=== PATIENT | female | born 1995 | race Caucasian/White ===

== ENCOUNTER 2018-03-07 06:23 | Inpatient (IN) | payer OTHER ==
[2018-03-07 07:18] LABS: Hemoglobin 10.5 g/dL (12.0-16.0); Mean Corpuscular HGB CONC 31.9 g/dL (32.0-36.0); Mean Corpuscular Hemoglobin 20.7 pg (27.0-31.0); Mean Corpuscular Volume 64.8 fL (78.0-98.0); Mean Platelet Volume 9.8 fL (7.4-10.4); Platelet Count 362 thou/uL (130-400); RBC Distribution Width 17.6 % (11.5-14.5); Red Blood Cell (RBC) Count 5.08 mill/uL (4.20-5.40); White Blood Cell (WBC) Count 12.1 thou/uL (4.8-10.8)
[2018-03-07] MEDS ORDERED: Fentanyl 4 mcg/Bup 0.1% Cadd 100 ML ONE (07:41)
[2018-03-07 07:50] VITALS: BMI 26.7
[2018-03-07] MEDS ORDERED: Ondansetron PF 4 MG/2 ML Vial IVP PRN ×2 (08:10→12:57)
[2018-03-07] MEDS ORDERED: Eucerin (Mineral Oil/Petrolatum,White) 30 gm Jar TOP PRN (08:10)
[2018-03-07] MEDS ORDERED: Lactated Ringer's 500 ML IV PRN (08:10)
[2018-03-07] MEDS ORDERED: ePHEDrine/0.9% NaCl/PF SYRINGE 50 mg/10 ml SLOW IVP PRN (08:10)
[2018-03-07] MEDS ORDERED: Naloxone HCl 0.4 mg/ml Vial IVP PRN ×2 (08:10)
[2018-03-07] MEDS ORDERED: Acetaminophen 325 MG TAB PO PRN (08:10)
[2018-03-07] MEDS ORDERED: diphenhydrAMINE 50 MG/ML VIAL IVP PRN (08:10)
[2018-03-07] MEDS ORDERED: Promethazine HCl 25 MG/ML VIAL IM PRN (08:10)
[2018-03-07] MEDS ORDERED: Fentanyl 4 mcg/Bupivacaine 0.1% Cassette 100 ML EPIDURAL SCH (08:15)
[2018-03-07] MEDS ORDERED: Communication Order-Pharmacy FS SCH (08:15)
[2018-03-07] MEDS ORDERED: Ibuprofen 800 MG TAB PO PRN (08:54)
[2018-03-07] MEDS ORDERED: Lidocaine 1% (PF) 30 ML VIAL SC PRN (08:54)
[2018-03-07] MEDS ORDERED: NS / Oxytocin 40 units/1000ml 1,000 ML IV PRN (08:54)
[2018-03-07] MEDS ORDERED: Diphenoxylate HCl/Atropine Tablet PO PRN ×2 (08:54)
[2018-03-07] MEDS ORDERED: Acetaminophen 500 MG TAB PO PRN (08:54)
[2018-03-07] MEDS ORDERED: Misoprostol 200 MCG TAB PR PRN (08:54)
[2018-03-07] MEDS ORDERED: Docusate 100 MG CAP PO PRN (08:54)
[2018-03-07] MEDS ORDERED: traMADol HCl 50 MG TAB PO PRN ×2 (08:57→12:57)
[2018-03-07 09:45] LABS: Syphilis Antibody Nonreactive (Nonreactive); Syphilis Antibody Index 0.04 S/CO (<1.00 Non-Reactive)
[2018-03-07] MEDS: Lactated Ringer's 1,000 ML IV SCH ×2 (10:32→10:33)
[2018-03-07] MEDS ORDERED: diphenhydrAMINE 25 MG CAP PO PRN (12:57)
[2018-03-07] MEDS ORDERED: Milk Of Magnesia 30 ML UDCUP PO PRN (12:57)
[2018-03-07] MEDS ORDERED: Benzocaine/Menthol 20-0.5% 60 ML CAN TOP PRN (12:57)
[2018-03-07] MEDS ORDERED: Bisacodyl 10 MG SUPP PR PRN (12:57)
[2018-03-07] MEDS ORDERED: Lanolin Ointment 7 GM TUBE TOP PRN (12:57)
[2018-03-07] MEDS ORDERED: Zolpidem Tartrate 5 MG TAB PO PRN (12:57)
[2018-03-07] MEDS ORDERED: Misoprostol 200 MCG TAB VAG PRN (12:57)
[2018-03-07] MEDS ORDERED: NS / Oxytocin 40 units/1000ml 1,000 ML IV SCH (13:00)
[2018-03-07] MEDS: Ibuprofen 800 MG TAB PO SCH (15:52)
[2018-03-07] MEDS: Ferrous Sulfate 325 MG TAB PO SCH (15:55)
[2018-03-07 16:06] LABS: HBSAg Index 2.13 S/CO (0-0.99)
[2018-03-07 16:07] LABS: Hep B Surf Ag Rflxd Confirmation S/CO (NonReactive)
[2018-03-07] MEDS: Docusate Calcium (SURFAK) 240 MG CAP PO SCH (21:39)
[2018-03-08] MEDS: Ibuprofen 800 MG TAB PO SCH ×3 (00:02→14:28)
[2018-03-08 06:46] LABS: Hemoglobin 9.5 g/dL (12.0-16.0); Mean Corpuscular HGB CONC 31.7 g/dL (32.0-36.0); Mean Corpuscular Hemoglobin 21.1 pg (27.0-31.0); Mean Corpuscular Volume 66.5 fL (78.0-98.0); Mean Platelet Volume 9.7 fL (7.4-10.4); Platelet Count 308 thou/uL (130-400); Red Blood Cell (RBC) Count 4.51 mill/uL (4.20-5.40); White Blood Cell (WBC) Count 11.6 thou/uL (4.8-10.8)
[2018-03-08 07:59] VITALS: BP 117/58
[2018-03-08] MEDS ORDERED: Prenatal Vitamin 1 TAB PO SCH (09:00)
[2018-03-08] MEDS ORDERED: Adacel (T-DAP) 0.5 ML VIAL IM ONE (09:00)
[2018-03-08] MEDS: Docusate Calcium (SURFAK) 240 MG CAP PO SCH (09:57)
[2018-03-08] MEDS: Ferrous Sulfate 325 MG TAB PO SCH (09:57)
[2018-03-08] MEDS ORDERED: Bupivacaine 0.25% HCL 30 ML VIAL ONE (10:34)
[2018-03-08 12:07] VITALS: TEMP 98
== END 2018-03-08 18:50 | disposition home or self-care (01) | DRG 807 ==
LOC: L&D/OP 06:23 → L&D 07:23 → 3SW 15:42
PROVIDERS: ADMIT Obstetrics & Gynecology; ATTEND Obstetrics & Gynecology
PROC: 10E0XZZ Delivery of Products of Conception, External Approach (ICD-10-PCS; principal; 2018-03-07)
PROC: 0KQM0ZZ Repair Perineum Muscle, Open Approach (ICD-10-PCS; 2018-03-07)
PROC: 4A0HXCZ Measurement of Products of Conception, Cardiac Rate, External Approach (ICD-10-PCS; 2018-03-07)
DX: O70.1 Second degree perineal laceration during delivery (principal); Z37.0 Single live birth; Z3A.38 38 weeks gestation of pregnancy
CPT/HCPCS: 36415; 51702; 85027; 86780; 86850; 86900; 86901; 87340; 99285; J2001; S0020